=== PATIENT | female | born 1950 | race African-American/Black ===

== ENCOUNTER 2017-03-10 10:13 | Inpatient (IN) ==
[2017-03-10] MEDS ORDERED: TEMAZEPAM 7.5 MG CAPSULE PO PRN (11:18)
[2017-03-10] MEDS ORDERED: LOPERAMIDE 2 MG CAPSULE PO PRN ×2 (11:18)
[2017-03-10] MEDS ORDERED: traMADol 50 MG TABLET PO PRN (11:18)
[2017-03-10] MEDS ORDERED: chlorproMAZINE INJ 50 MG in SODIUM CHLORIDE 0.9% 100 ML IV PRN (11:18)
[2017-03-10] MEDS ORDERED: ACETAMINOPHEN 325 MG TABLET PO PRN (11:18)
[2017-03-10] MEDS ORDERED: ALUMINUM/MAGNES/SIMETH MAX STR 30 ML UDCUP PO PRN (11:18)
[2017-03-10] MEDS ORDERED: chlorproMAZINE 25 MG TABLET PO PRN (11:18)
[2017-03-10] MEDS ORDERED: chlorproMAZINE INJ 25 MG in SODIUM CHLORIDE 0.9% 100 ML IV PRN (11:18)
[2017-03-10] MEDS ORDERED: MYLANTA/LIDO VISC 2:1 300 ML BOTTLE SWISH/SWAL PRN (11:18)
[2017-03-10] MEDS ORDERED: BENZTROPINE 2 MG/2 ML AMP IV PRN (11:18)
[2017-03-10] MEDS ORDERED: PROMETHAZINE INJ 25 MG in SODIUM CHLORIDE 0.9% 50 ML IV PRN (11:18)
[2017-03-10] MEDS ORDERED: ALPRAZolam 0.25 MG TABLET PO PRN (11:18)
[2017-03-10] MEDS ORDERED: MYLANTA/LIDO VISC 2:1 300 ML BOTTLE SWISH/SPIT PRN (11:18)
[2017-03-10] MEDS ORDERED: diphenhydrAMINE CAP 25 MG CAPSULE PO PRN (11:18)
[2017-03-10] MEDS ORDERED: guaiFENesin 200 MG/10 ML UDCUP PO PRN (11:18)
[2017-03-10] MEDS ORDERED: MAGNESIUM HYDROXIDE SUSP 30 ML UDCUP PO PRN (11:18)
[2017-03-10] MEDS ORDERED: LACTULOSE 20 GM/30 ML UDCUP PO PRN (11:18)
--- NOTE | 2017-03-10 12:32 | Ultrasound Report ---
US liver Indication: Elevated bilirubin. Comparison: None. Technique: Using transcutaneous probe, ultrasound imaging of the right upper quadrant was performed. Ultrasound images were captured and stored. Imaged structures include the liver, gallbladder, pancreas, right kidney, aorta, and inferior vena cava. Findings: The liver demonstrates a coarsened pattern of heterogeneous echotexture and contains a round hypoechoic structure transmission measuring 2.1 x 2.0 cm most suggestive of cyst. A second hypoechoic round to oval shaped structure measuring 2.2 x 1.5 cm is present that may reflect an additional cyst, this particular lesion does not demonstrate distinct posterior wall enhancement or through transmission. A larger anechoic round structure with through transmission compatible with cyst measures 5.2 x 5.7 cm. Common bile duct is not identified. Small amount of ascites is noted within the upper abdomen. Pancreas is grossly unremarkable. The right kidney measures 12.8 cm in craniocaudal dimension. The aorta and inferior vena cava not included on study. Color flow is present within the portal veins interrogated. Impression: 1. The liver appears enlarged and demonstrates diffusely heterogeneous pattern of echotexture of multiple hypoechoic to anechoic structures the majority of which have through transmission and/or posterior wall enhancement compatible with cysts. One of these does not have clear-cut posterior wall enhancement but does demonstrate some evidence of through transmission and is favored to represent cyst. 03/10/2017 12:26 PM PROCEDURE INTERPRETED AT [facility] DEPARTMENT OF RADIOLOGY Final Report Signed by: Dr. Harley Luna
--- NOTE | 2017-03-10 12:37 | Ultrasound Report ---
History: Lower extremity swelling. Metastatic colon cancer Date: 03/10/2017 Study: Bilateral lower extremity color-flow venous Doppler study Comparison exam: No previous Color Doppler, wave form analysis, and compression analysis of the deep veins of both lower extremities from the common femoral vein level through the popliteal vein level shows that the veins are readily compressible. There is no abnormal intraluminal material to suggest thrombus. Waveform analysis is unremarkable. Ultrasound images were captured and archived Impression: Normal bilateral lower extremity color flow venous Doppler study. No evidence of acute DVT PROCEDURE INTERPRETED AT [facility] DEPARTMENT OF RADIOLOGY Final Report Signed by: Dr. Sharda Rodrigez
[2017-03-10] MEDS: SODIUM CHLORIDE 0.9% 1,000 ML IV SCH (12:44)
[2017-03-10 14:00] LABS: Magnesium 1.9 MG/DL (1.8-2.4); Uric Acid 12.4 MG/DL (2.6-6.0)
--- NOTE | 2017-03-10 14:25 | CT Report ---
CT chest abdomen pelvis w con Indication: Colon cancer. Comparison: None. Technique: CT of the chest, abdomen, and pelvis was performed following the administration of intravenous contrast. The CT examination was performed using one or more of the following dose reduction techniques: Automatic exposure control, adjustment of the mA and kV according to patient size, or iterative reconstruction techniques. Findings: CHEST: Lungs are clear. No endobronchial lesions or pleural effusions are present. No adenopathy is noted within the axilla, dao, or mediastinum. Heart size is normal. There is enhancing epidural cardiac lymph node within the right upper cardiac window which measures 2.4 x 1.7 cm. The aorta and pulmonary arteries demonstrate no significant abnormalities. Bony structure of the thoracic spine and rib cage as well as sternum demonstrate no specific evidence of osseous metastatic disease. Shoulder girdles are unremarkable in appearance. Soft tissues and musculature of the chest wall as well as lower neck demonstrate no evidence of acute pathology or findings to suggest metastatic disease. ABDOMEN/PELVIS: The liver is enlarged and demonstrates diffusely distributed metastatic disease with too numerous to count metastatic lesions throughout the liver. Small amount ascites is noted anterior to the liver and right hepatic lobe. Additional ascites is noted within the abdomen and pelvis. Liver measures 31 cm in craniocaudal dimension. The largest lesion within the liver measures 20 cm in transverse dimension, 15 cm in craniocaudal dimension, and 12 cm in AP dimension. Mass effect and narrowing/effacement of the left main portal vein is present. Spleen is normal in size. Pancreas demonstrates no significant abnormality. Adrenal glands are not well-visualized. The kidneys demonstrate no significant abnormalities. Aorta is unremarkable. Multiple heterogeneously enhancing lesions are demonstrated within the lower abdomen and pelvis. Some of these are peripherally calcified and range in size from 5.5 cm approximately 3 cm. Peripheral calcification is present while some of these resemble partially calcified uterine fibroids, there is no identifiable structure compatible with uterus in this region. These most likely represent metastatic process. Stomach, duodenum, and small bowel demonstrate no significant abnormalities. Large bowel is decompressed. No lesions of the large bowel are clearly demonstrated. The appendix is not identified. The right gonadal vein is diffusely enlarged and extends into the region of the multiple intrapelvic masses. Its uncertain whether these multiple intrapelvic masses represent ovarian primary or right ovarian/adnexal metastatic disease. Left ovary is grossly normal in size and appearance. Borderline inguinal lymph nodes present on the right. Bony structures lumbar spine and proximal pelvis demonstrates no significant abnormality. Soft tissues and musculature of the body wall demonstrate no significant abnormalities. Impression: 1. No specific evidence of pulmonary metastatic disease. The only evidence of neoplasm above the diaphragm is an enlarged heterogeneously enhancing right epicardiac lymph node. 2. Hepatomegaly and extensive hepatic metastatic disease is demonstrated involving both left and right hepatic lobes. Details are above. 3. Additional intrapelvic metastatic disease is suggested with multiple round heterogeneously enhancing masses that extend into the left lower abdomen and midline abdomen from the pelvis. This appears to be contiguous with the right ovary and/or gonadal vein pedicle suggesting either right ovarian primary or right ovarian metastatic disease extending into the left lower abdomen the left ovary is identified and is grossly normal in size. The uterus is not identified. 4. The large bowel demonstrates no focal mass. 03/10/2017 2:10 PM PROCEDURE INTERPRETED AT [facility] DEPARTMENT OF RADIOLOGY Final Report Signed by: Dr. Harley Luna
[2017-03-11] MEDS: SODIUM CHLORIDE 0.9% 1,000 ML IV SCH (01:59)
[2017-03-11 02:44] LABS: Apearance,Urine Slightly Hazy (Clear); Bacteria,Urine Few /HPF (Few); Blood, Urine Negative (Negative); Glucose,Urine (UA) Negative (Negative); Ketones,Urine Negative (Negative); Nitrite,Urine Negative (Negative); Protein,Urine 30 MG/DL; RBC,Urine 3 /HPF (0-4); Renal Epithelial Cells,Urine Occasional /HPF (<1); Squamous Epithelial Cell,Urine Occasional /HPF (0-10); Urine Color Amber (Yellow); WBC,Urine 8 /HPF (0-6)
[2017-03-11 02:45] LABS: Bilirubin,Urine Small mg/dL (Negative)
[2017-03-11 05:14] LABS: Basophils # 0.1 10*3/uL (0.0-0.2); Basophils % 0.5 % (0.0-0.8); Eosinophils # 0.2 10*3/uL (0.0-0.87); Eosinophils % 1.3 % (0.00-10.9); Hemoglobin 8.2 GM/DL (12.0-16.0); Immature Granulocytes % 0.7 %; Immature Granulocytes Absolute 0.09 #; Lymphocytes # 0.9 10*3/uL (1.4-4.0); Lymphocytes % 6.4 % (21.3-54.2); Mean Corpuscular HGB Conc 35.7 GM/DL (32-36); Mean Corpuscular Hemoglobin 29 PG (27-34); Mean Corpuscular Volume 82.4 FL (87-102); Mean Platelet Volume 11.6 FL (9.6-12.0); Monocytes # 1.5 10*3/uL (0.11-0.8); Monocytes % 11.2 % (1.7-12.7); Neutrophils # 10.6 10*3/uL (1.4-7.4); Neutrophils % 79.9 % (38.7-73.9); Platelet Count 343 T/CUMM (130-400); Red Blood Count 2.79 MC/CUMM (3.8-5.5); Red Cell Distribution Width 15.7 % (9.3-17.3); White Blood Count 13.2 T/CUMM (4-12)
[2017-03-11 05:34] LABS: INR 1.2; PT Patient Result 13.2 SECS; Partial Thromboplastin Time 28.5 SECS (0-40)
[2017-03-11 05:46] LABS: Albumin 2.2 G/DL (3.4-5.0); Bilirubin,Total 9.1 MG/DL (0.2-1.0); Calcium 8.6 MG/DL (8.5-10.1); Osmolality,Calculated 268.2 MOS/KG (273-304); Potassium 3.5 MMOL/L (3.5-5.1); Total Protein 5.4 G/DL (6.4-8.3)
--- NOTE | 2017-03-11 08:26 | Oncology History&Physical ---
Assessment and Plan - Time spent with patient Time spent with patient: Greater than 30 minutes (1) Colon cancer Status: Acute Assessment and plan: We will begin FOLFOX chemotherapy today. I will reduce the doses of her chemotherapy due to her liver failure. She will lose me in the hospital for 3 days for her chemotherapy. She has very poor peripheral access we will have to ask radiology for a PICC today before we began chemotherapy. I will go ahead and ask general surgery to see her to arrange for outpatient Mediport placement sometime in the next 2 weeks. Current Visit: Yes (2) Liver metastases Status: Acute Current Visit: Yes (3) Liver failure Status: Acute Current Visit: Yes (4) Jaundice Status: Acute Current Visit: Yes History of Present Illness History of present illness: Ms. Ingram is a 66 year old female with newly diagnosed metastatic colon cancer with significant liver involvement. Yesterday was her initial visit with me in clinic and she was found to have a bilirubin level of 10 with her level being only 5 last week and [place]. I admit her to the hospital after having a lengthy conversation with her about the gravity of her situation. I offered her hospice care versus immediate initiation of chemotherapy due to her rapid liver failure. She chose to do chemotherapy understanding that this may actually shorten her life as opposed to lengthen it. CT scan done yesterday did not show any evidence of extrahepatic ductal compression. Her liver failure seems to be due to the overwhelming burden of her tumor. She also has diffuse pelvic involvement from metastatic implants. There was no significant thoracic involvement other than a 2-1/2 cm lymph node just above her diaphragm. Her bony structures seem to be spared as well. Outside colonoscopy confirmed a large mass in the sigmoid colon that was biopsied with pathology showing adenocarcinoma. 1 of the liver lesions were biopsied as well and was consistent with adenocarcinoma of colonic primary. She denied a lengthy discussion today about initiation of chemotherapy. She is still in agreement so we will start this today with 5 fluorouracil, leucovorin, and oxaliplatin. Home Medications Medication Instructions Recorded Confirmed Type Furosemide Tab [Lasix Tab] 40 mg PO DAILY 03/10/17 03/10/17 History Metoprolol Tartrate 25 mg PO AC 03/10/17 03/10/17 History Simvastatin [Zocor] 40 mg PO BEDTIME 03/10/17 03/10/17 History Allergies Allergy/AdvReac Type Severity Reaction Status Date / Time No Known Allergies Allergy Verified 03/10/17 11:17 Medical,Surgical,& Family Hx - Medical History Cardio: History of: Hypertension Gastrointestinal: History of: Gastrointestinal Cancer (NEW DX COLON CANCER) - Family History Family History: Reports;: Family Heart Disease, Family Hypertension - Social History Smoking Status: Never smoker Frequency of Alcohol Use: None Type of Drug Use: None 12 point system: reviewed and no additional remarkable complaints except as stated - Constitutional Constitutional: Present: fatigue - Gastrointestinal Gastrointestinal: Present: abdominal pain, nausea, jaundice. Absent: dysphagia Exam - Constitutional Vitals: Period Temp Pulse Resp BP Sys/Flanagan Pulse Ox Last 24 Hr 98.8 F-99.8 F 110-129 18-22 114-129/58-65 92-95 General appearance: normal weight, no acute distress - Head Head Exam: Present: normocephalic, atraumatic - Eye Eye Exam: Present: EOMI, scleral icterus Pupils: Present: PERRL - ENT ENT exam: Present: normal exam, normal oropharynx - Neck Neck exam: Absent: lymphadenopathy, thyromegaly - Respiratory Respiratory exam: Present: CTAB. Absent: wheezes - Cardiovascular Cardiovascular exam: Present: RRR. Absent: JVD, systolic murmur - GI/Abdominal GI/Abdominal exam: Present: soft. Absent: ascites, distended, firm, mass - Neurological Exam Neurological exam: Present: alert, oriented X3 - Psychiatric Psychiatric exam: Present: normal affect, normal mood - Skin Skin exam: Present: warm, dry (Jaundice) Results - Labs CBC & BMP: 03/11/17 04:19 03/11/17 04:19 Lab Results: I have reviewed the past 24 hour labs
[2017-03-11] MEDS ORDERED: GRANISETRON 1 MG/1 ML VIAL IV SCH (08:30)
[2017-03-11] MEDS ORDERED: DEXAMETHASONE INJ 10 MG in SODIUM CHLORIDE 0.9% 50 ML IV ONE (09:00)
[2017-03-11] MEDS ORDERED: DEXTROSE 5% IV ONE ×2 (09:00)
[2017-03-11] MEDS ORDERED: FLUOROURACIL IV ONE (09:00)
[2017-03-11] MEDS ORDERED: LEUCOVORIN IV ONE (09:00)
[2017-03-11] MEDS ORDERED: OXALIPLATIN IV ONE (09:00)
--- NOTE | 2017-03-11 12:01 | General Surgery Consult Note ---
Assessment and Plan (1) Colon cancer Status: Acute Assessment and plan: Patient with metastatic adenocarcinoma of the colon planning to initiate chemotherapy requesting Mediport placement by oncology. Patient receiving PICC today and WBC 13 - no comparison labs. Considering recent liver failure and liver metastases, we will check coag studies. The risks of the procedure were reviewed with the patient including but not limited to infection, bleeding, blood vessel injury, nerve injury, lung injury, local or blood infection, wound complications, local pain, device failure, with a need for additional procedures. The patient expresses understanding of these risks with her at bedside and wishes to proceed with Mediport placement when convenient. Case will be reviewed with Dr. Valencia and timing planned. Current Visit: Yes History of Present Illness Chief complaint: Mediport Placement History of present illness: Ms. Ingram is a 66 year old female with metastatic adenocarcinoma of the colon who is plan to initiate chemotherapy. Oncology has requested Mediport placement for central access. Patient denies any recent fever, chills, rigors, nausea, vomiting, diarrhea or dysuria. No local rashes or open wounds. No history of chest or upper extremity trauma or need for central access. Home Medications Medication Instructions Recorded Confirmed Type Furosemide Tab [Lasix Tab] 40 mg PO DAILY 03/10/17 03/10/17 History Metoprolol Tartrate 25 mg PO AC 03/10/17 03/10/17 History Simvastatin [Zocor] 40 mg PO BEDTIME 03/10/17 03/10/17 History Allergies Allergy/AdvReac Type Severity Reaction Status Date / Time No Known Allergies Allergy Verified 03/10/17 11:17 Medical,Surgical,& Family Hx - Medical History Cardio: History of: Hypertension Gastrointestinal: History of: Gastrointestinal Cancer ( COLON CANCER - metastatic adenocarcinoma) - Family History Family History: Reports;: Family Heart Disease, Family Hypertension - Social History Smoking Status: Never smoker Frequency of Alcohol Use: None Type of Drug Use: None - Constitutional Constitutional: Present: as per HPI - Cardiovascular Cardiovascular: Absent: chest pain at rest, chest pain with activity, orthopnea , palpitations - Respiratory Respiratory: Absent: cough, wheezing - Gastrointestinal Gastrointestinal: Present: as per HPI - Genitourinary Genitourinary: Present: as per HPI - Musculoskeletal Musculoskeletal: Absent: arthralgias Hematologic/Lymphatic: Absent: easy bleeding, easy bruising Exam - Constitutional Vitals: Period Temp Pulse Resp BP Sys/Flanagan Pulse Ox Last 24 Hr 98.4 F-99.8 F 103-116 18-22 114-129/56-65 92-96 General appearance: no acute distress - Head Head exam: Present: normal inspection, normocephalic - Eye Eye exam: Present: scleral icterus. Absent: conjunctival injection - Neck Neck exam: Present: trachea midline - Respiratory Respiratory exam: Present: clear to auscultation bilaterally - Cardiovascular Cardiovascular exam: Present: RRR - GI/Abdominal GI/Abdominal exam: Present: normal bowel sounds, soft. Absent: distended, tenderness - Extremities Exam Extremities exam: Present: other (Radial pulses 2+ bilateral upper extremity). Absent: calf tenderness, edema - Neurological Exam Neurological exam: Present: alert, oriented X3 Speech: Present: normal - Skin Skin exam: Present: warm. Absent: rash Results - Labs CBC & BMP: 03/11/17 04:19 03/11/17 04:19
--- NOTE | 2017-03-11 16:06 | Post Interventional Procedure ---
Pre-op diagnosis: metastatic Colon CA Post-op diagnosis: same Procedure: PICC placement Contrast: none Flouroscopy: 0.1 min Radiologist: Augustus Palma Anesthesia: local Specimens: none sent Estimated blood loss: none Complications: none Condition: stable Description/Findings: 5 FR left arm dual lumen picc placement done without any issues. the catheter is ready to use. Assessment and Plan - Time spent with patient Time spent with patient: Less than 30 minutes
--- NOTE | 2017-03-11 16:33 | Interventional Radiology Rpt ---
IR PICC line insertion, US guide vascular access IR PICC Placement Peripherally-inserted central catheter (PICC) placement using ultrasound and fluoroscopic guidance Ultrasound of the left upper extremity Clinical Information: New diagnosis of metastatic colon cancer with extensive hepatic involvement. PICC line is requested for immediate chemotherapy initiation. Physician: Dr. Palma Procedure: The patient was advised of the benefits, risks, and alternatives of the procedure and informed consent was obtained. A time out was performed with verification of the patient's name, MRN, site of procedure, and type of procedure to be performed. The patient was positioned in the supine position on the angiographic table. The site was prepped and draped in the usual sterile fashion. Additionally, maximal sterile barrier technique was employed for the procedure. A technical adjuster radiograph reveals no relevant abnormality. Ultrasound examination of the left arm demonstrates patent and compressible brachial and basilic veins. The left arm was prepped and draped in the usual sterile fashion. The left basilic vein was again identified. Using ultrasound guidance, a 21 gauge needle was used to access the vein. A permanent ultrasound recording of vascular access was obtained for the patient's record. A 0.018" cope wire was then advanced into the vein. The needle was exchanged for a 5 [place] peel-away sheath. A 5 [place] double lumen Bard Solo PICC catheter was measured and trimmed to the 40 cm isaura. The PICC line was advanced through the sheath and into the central circulation. The catheter tip was positioned at the cavo-atrial junction. The peel-away sheath was then removed. At the conclusion of the procedure, the catheter was secured in place using a Stat-Lock device. A sterile dressing was applied. The lumens aspirate and flush freely. The catheter is ready for immediate use. The patient tolerated the procedure well and was returned to the PRU in stable condition. EBL: < 5 mL. Complications: None. Fluoroscopy time: 0.1 min Total number of images for this study: 2 Conclusion: Successful placement of a 5 [place] double lumen Bard Solo power injectable PICC via the left basilic vein. The catheter is ready for immediate use. PROCEDURE INTERPRETED AT [facility] DEPARTMENT OF RADIOLOGY Final Report Signed by: Augustus Palma
[2017-03-11] MEDS: FLUOROURACIL IV SCH (17:19)
[2017-03-11] MEDS: SODIUM CHLORIDE 0.9% IV SCH (17:19)
[2017-03-12 05:29] LABS: Basophils % 0.3 % (0.0-0.8); Hematocrit 23.7 VOL% (35.7-47.0); Hemoglobin 8.4 GM/DL (12.0-16.0); Immature Granulocytes % 0.9 %; Lymphocytes # 0.6 10*3/uL (1.4-4.0); Mean Corpuscular HGB Conc 35.4 GM/DL (32-36); Mean Corpuscular Hemoglobin 29 PG (27-34); Mean Corpuscular Volume 82.6 FL (87-102); Mean Platelet Volume 11.9 FL (9.6-12.0); Monocytes # 1.2 10*3/uL (0.11-0.8); Monocytes % 10.4 % (1.7-12.7); Neutrophils # 9.5 10*3/uL (1.4-7.4); Neutrophils % 83.4 % (38.7-73.9); Platelet Count 392 T/CUMM (130-400); Red Blood Count 2.87 MC/CUMM (3.8-5.5); Red Cell Distribution Width 16.2 % (9.3-17.3); White Blood Count 11.4 T/CUMM (4-12)
[2017-03-12 06:03] LABS: Albumin 2.1 G/DL (3.4-5.0); Calcium 8.8 MG/DL (8.5-10.1); Magnesium 1.9 MG/DL (1.8-2.4); Osmolality,Calculated 272.1 MOS/KG (273-304); Potassium 3.8 MMOL/L (3.5-5.1); Total Protein 5.5 G/DL (6.4-8.3)
[2017-03-12 06:14] LABS: INR 1.3; PT Patient Result 13.5 SECS; Partial Thromboplastin Time 28.6 SECS (0-40)
--- NOTE | 2017-03-12 08:39 | Oncology Progress Note ---
Assessment and Plan (1) Liver metastases Status: Acute Current Visit: Yes (2) Liver failure Status: Acute Current Visit: Yes (3) Jaundice Status: Acute Current Visit: Yes (4) Colon cancer Status: Acute Current Visit: Yes Oncology Subjective PN Interval history: Ms. Ingram is tolerating chemotherapy well. She will complete her 5 fluorouracil infusion tomorrow evening. I will likely watch her overnight and discharge her on Wednesday. Her lab work this morning is essentially stable. Her bilirubin remains around 9. Her appetite is good. I will DC IV fluids today. I encouraged her to ambulate in the hallway 2-3 times a day. Also encouraged her that she should sit in the chair instead of the bed while she is in the room. Her prognosis remains poor but hopefully we can buy her a few extra months if we can have her tumor response to chemotherapy. Exam - Constitutional Vitals: Period Temp Pulse Resp BP Sys/Flanagan Pulse Ox Last 24 Hr 97.3 F-99.3 F 102-112 18-20 114-129/65-73 92-96 General appearance: normal weight, no acute distress - Head Head Exam: Present: normocephalic, atraumatic - Eye Eye Exam: Present: scleral icterus - ENT ENT exam: Present: normal exam, normal oropharynx - Neck Neck exam: Absent: lymphadenopathy, thyromegaly - Respiratory Respiratory exam: Present: CTAB. Absent: wheezes - Cardiovascular Cardiovascular exam: Present: RRR. Absent: JVD - GI/Abdominal GI/Abdominal exam: Present: soft. Absent: ascites, distended, firm, mass - Neurological Exam Neurological exam: Present: alert, oriented X3 - Psychiatric Psychiatric exam: Present: normal affect, normal mood - Skin Skin exam: Present: warm, dry Results - Labs CBC & BMP: 03/12/17 04:14 03/12/17 04:14 Lab Results: I have reviewed the past 24 hour labs Quality Measures - VTE Contraindication to Pharmacological VTE Prophylaxis: High Risk of Bleeding Specialty Discharge - Follow Up or Referrals Follow up with: Dimitri Valencia MD [Physician] - 1 Week
[2017-03-12] MEDS: FLUOROURACIL IV SCH (15:50)
[2017-03-12] MEDS: SODIUM CHLORIDE 0.9% IV SCH (15:50)
[2017-03-12] MEDS: ONDANSETRON 4 MG/2 ML VIAL IV PRN (16:59)
[2017-03-13 05:39] LABS: Basophils # 0.1 10*3/uL (0.0-0.2); Basophils % 0.4 % (0.0-0.8); Eosinophils # 0.2 10*3/uL (0.0-0.87); Eosinophils % 1.2 % (0.00-10.9); Hematocrit 24.3 VOL% (35.7-47.0); Hemoglobin 8.6 GM/DL (12.0-16.0); Immature Granulocytes % 0.4 %; Immature Granulocytes Absolute 0.06 #; Lymphocytes # 0.9 10*3/uL (1.4-4.0); Lymphocytes % 6.8 % (21.3-54.2); Mean Corpuscular HGB Conc 35.4 GM/DL (32-36); Mean Corpuscular Hemoglobin 29 PG (27-34); Mean Corpuscular Volume 82.7 FL (87-102); Mean Platelet Volume 11.3 FL (9.6-12.0); Monocytes # 0.4 10*3/uL (0.11-0.8); Monocytes % 2.9 % (1.7-12.7); Neutrophils # 12.1 10*3/uL (1.4-7.4); Neutrophils % 88.3 % (38.7-73.9); Platelet Count 422 T/CUMM (130-400); Red Blood Count 2.94 MC/CUMM (3.8-5.5); Red Cell Distribution Width 16.3 % (9.3-17.3); White Blood Count 13.7 T/CUMM (4-12)
[2017-03-13 06:23] LABS: Albumin 2.2 G/DL (3.4-5.0); Bilirubin,Total 9.1 MG/DL (0.2-1.0); Calcium 9.1 MG/DL (8.5-10.1); Magnesium 1.8 MG/DL (1.8-2.4); Osmolality,Calculated 273.1 MOS/KG (273-304); Potassium 3.7 MMOL/L (3.5-5.1); Total Protein 5.5 G/DL (6.4-8.3)
[2017-03-13] MEDS: ONDANSETRON 4 MG/2 ML VIAL IV PRN (07:53)
--- NOTE | 2017-03-13 10:31 | Oncology Progress Note ---
Assessment and Plan (1) Liver metastases Status: Acute Current Visit: Yes (2) Liver failure Status: Acute Current Visit: Yes (3) Jaundice Status: Acute Current Visit: Yes (4) Colon cancer Status: Acute Current Visit: Yes Oncology Subjective PN Interval history: Ms. Ingram is doing well today. She completes chemotherapy later today but we will watch her overnight for observation purposes. I will plan to discharge her home in the morning unless we have some type of complications today. She is ambulating well. She is taking in p.o. intake but her appetite is low. She still has significant scleral icterus and a distended abdomen. Her lab work is essentially stable today. Exam - Constitutional Vitals: Period Temp Pulse Resp BP Sys/Flanagan Pulse Ox Last 24 Hr 97.2 F-99.4 F 107-122 16-22 110-129/56-71 92-97 General appearance: normal weight, no acute distress - Head Head Exam: Present: normocephalic, atraumatic - Eye Eye Exam: Present: EOMI, scleral icterus Pupils: Present: PERRL - ENT ENT exam: Present: normal exam, normal oropharynx - Neck Neck exam: Absent: lymphadenopathy, thyromegaly - Respiratory Respiratory exam: Present: CTAB. Absent: wheezes - GI/Abdominal GI/Abdominal exam: Present: ascites, distended, firm. Absent: mass, soft Results - Labs CBC & BMP: 03/13/17 04:42 03/13/17 04:42 Lab Results: I have reviewed the past 24 hour labs Quality Measures - VTE Contraindication to Pharmacological VTE Prophylaxis: High Risk of Bleeding Specialty Discharge - Follow Up or Referrals Follow up with: Dimitri Valencia MD [Physician] - 03/22/17 10:15 am
[2017-03-13] MEDS ORDERED: METOPROLOL TARTRATE 25 MG TABLET PO SCH (21:00)
[2017-03-14 06:14] LABS: Basophils % 0.2 % (0.0-0.8); Eosinophils # 0.1 10*3/uL (0.0-0.87); Eosinophils % 0.8 % (0.00-10.9); Hematocrit 24.5 VOL% (35.7-47.0); Hemoglobin 8.5 GM/DL (12.0-16.0); Immature Granulocytes % 0.8 %; Lymphocytes # 0.7 10*3/uL (1.4-4.0); Lymphocytes % 5.9 % (21.3-54.2); Mean Corpuscular HGB Conc 34.7 GM/DL (32-36); Mean Corpuscular Hemoglobin 28 PG (27-34); Mean Corpuscular Volume 81.7 FL (87-102); Mean Platelet Volume 11.5 FL (9.6-12.0); Monocytes # 0.1 10*3/uL (0.11-0.8); Monocytes % 0.7 % (1.7-12.7); Neutrophils # 10.9 10*3/uL (1.4-7.4); Neutrophils % 91.6 % (38.7-73.9); Platelet Count 423 T/CUMM (130-400); Red Cell Distribution Width 16.5 % (9.3-17.3); White Blood Count 11.9 T/CUMM (4-12)
[2017-03-14 06:41] LABS: Eosinophils 2 % (0-10); Hypochromasia 1+; Lymphocytes 8 % (20-55); Ovalocytes Slight; Platelet Estimate Adequate; Segmented Neutrophils 88 % (50-85); Total Cells Counted 100
[2017-03-14 06:46] LABS: Bilirubin,Total 8.8 MG/DL (0.2-1.0); Calcium 8.9 MG/DL (8.5-10.1); Magnesium 2.1 MG/DL (1.8-2.4); Osmolality,Calculated 275.8 MOS/KG (273-304); Potassium 3.7 MMOL/L (3.5-5.1); Total Protein 5.2 G/DL (6.4-8.3)
[2017-03-14] MEDS: ONDANSETRON 4 MG/2 ML VIAL IV PRN (07:53)
--- NOTE | 2017-03-14 08:59 | Discharge Summary ---
Hospital Course - Hospital Course Hospital Course: Ms. Ingram is a 66-year-old black female with newly diagnosed metastatic colon cancer with extensive liver metastases. She has liver failure secondary to the amount of disease in her liver. I admitted her from clinic on the day of our initial visit to start chemotherapy as soon as possible. She tolerated her first dose of FOLFOX well. I reduced her doses of chemotherapy by 50%. She finished chemotherapy yesterday and has done well. My plan is to send her home today and see her back in clinic in 2 weeks on March 24 for her next round of chemotherapy. 1. Please make appt to see me on March 24 in a.m. with CBC/CMP/CEA 2. Pt needs to keep appt with Dr. Valencia for medi-port placement - Time spent with patient Time with patient DS: Greater than 30 minutes Diagnosis - Discharge Diagnosis (1) Liver metastases Status: Acute (2) Liver failure Status: Acute (3) Jaundice Status: Acute (4) Colon cancer Status: Acute Specialty Discharge - Follow Up or Referrals Follow up with: Dimitri Valencia MD [Physician] - 03/22/17 10:15 am Discharge Plan - Discharge Data Disposition: Disch To Home/Self Care Condition at Discharge: Stable Discharge Diet: advance to your usual diet Activity: resume usual activities as tolerated Hygiene: no restrictions Weight Bearing at Discharge: full weight bearing Contact your physician if you experience:: fever over 101, Nausea/Vomiting - Discharge Medications New Ondansetron HCl 8 mg PO Q6HR #30 tablet Continue Furosemide Tab [Lasix Tab] 40 mg PO DAILY Metoprolol Tartrate 25 mg PO BEDTIME Discontinued Simvastatin [Zocor] 40 mg PO BEDTIME - Follow Up or Referral Follow Up: Dimitri Valencia MD [Physician] - 03/22/17 10:15 am - Forms/Instructions Exam - Constitutional Vitals: Period Temp Pulse Resp BP Sys/Flanagan Pulse Ox Last 24 Hr 98.6 F-100.6 F 108-114 16-20 116-129/62-70 92-97 Discharge Results Procedures and tests throughout hospitalization: Pending Orders 03/15/17 04:00 Comp Blood Count Auto Diff IN AM Comprehensive Metabolic Panel IN AM Magnesium IN AM Labs on day of discharge: Labs from last 24 hours 03/14/17 03/14/17 04:00 04:00 WBC 11.9 RBC 3.00 L Hgb 8.5 L Hct 24.5 L MCV 81.7 L MCH 28 MCHC 34.7 RDW 16.5 Plt Count 423 H MPV 11.5 Neut % (Auto) 91.6 H Lymph % (Auto) 5.9 L [place] % (Auto) 0.7 L Eos % (Auto) 0.8 Baso % (Auto) 0.2 Neut # (Auto) 10.9 H Lymph # (Auto) 0.7 L [place] # (Auto) 0.1 L Eos # (Auto) 0.1 Baso # (Auto) 0.0 Total Counted 100 Immature Gran % 0.8 Nucleated RBC % 0.0 Immature Gran # 0.10 Segmented Neutrophils 88 H Lymphocytes 8 L Monocytes 1 L Eosinophils 2 Basophils 1.0 H Nucleated RBCs # 0.00 Platelet Estimate Adequate Hypochromasia 1+ Ovalocytes Slight Morphology Comment Sodium 137 Potassium 3.7 Chloride 98 Carbon Dioxide 28 Anion Gap 14.7 BUN 20 H Creatinine 0.80 GFR Calculation 99 BUN/Creatinine Ratio 25.00 H Glucose 100 Calculated Osmolality 275.8 Calcium 8.9 Magnesium 2.1 Total Bilirubin 8.80 H AST 374 H ALT 63 H Alkaline Phosphatase 394 H Total Protein 5.2 L Albumin 2.0 L Globulin 3.2 Albumin/Globulin Ratio 0.6 L DS: Provider Date of admission: 03/10/17 10:43 Primary care physician: . No PCP Attending physician on admission: Aston Mojica MD Consults: 03/10/17 12:07 Consult to Dietitian [CONS] Routine Reason for Dietitian: Diet Recommendations 03/11/17 08:19 Consult to Physician [CONS] Routine Comment: Please evaluate for mediport placement Consulting Provider: Dimitri Valencia Consulting Provider Notified: Yes When should Consulting Provider be notified: Now Consult to Specialist Group: Surgery When should Consulting Provider be notified: Now Person Notified: HELADIO Date Notified: 03/11/17 Time Notified: 10:13 Discharging clinician: Aston Mojica MD
[2017-03-14 09:20] VITALS: BP 117/57
== END 2017-03-14 10:00 | disposition home or self-care (01) | DRG 847 ==
LOC: N.4E 10:43
PROVIDERS: ADMIT Specialist; ATTEND Specialist

== ENCOUNTER 2017-06-02 17:12 | Inpatient (IN) ==
[2017-06-02] MEDS ORDERED: ALUMINUM/MAGNES/SIMETH MAX STR 30 ML UDCUP PO PRN (17:24)
[2017-06-02] MEDS ORDERED: ACETAMINOPHEN 325 MG TABLET PO PRN (17:24)
[2017-06-02] MEDS ORDERED: LACTULOSE 20 GM/30 ML UDCUP PO PRN (17:24)
[2017-06-02] MEDS ORDERED: chlorproMAZINE INJ 50 MG in SODIUM CHLORIDE 0.9% 100 ML IV PRN (17:24)
[2017-06-02] MEDS ORDERED: LOPERAMIDE 2 MG CAPSULE PO PRN ×2 (17:24)
[2017-06-02] MEDS ORDERED: PROMETHAZINE INJ 25 MG in SODIUM CHLORIDE 0.9% 50 ML IV PRN (17:24)
[2017-06-02] MEDS ORDERED: chlorproMAZINE INJ 25 MG in SODIUM CHLORIDE 0.9% 100 ML IV PRN (17:24)
[2017-06-02] MEDS ORDERED: ALPRAZolam 0.25 MG TABLET PO PRN (17:24)
[2017-06-02] MEDS ORDERED: diphenhydrAMINE CAP 25 MG CAPSULE PO PRN (17:24)
[2017-06-02] MEDS ORDERED: MYLANTA/LIDO VISC 2:1 300 ML BOTTLE SWISH/SPIT PRN (17:24)
[2017-06-02] MEDS ORDERED: guaiFENesin 200 MG/10 ML UDCUP PO PRN (17:24)
[2017-06-02] MEDS ORDERED: chlorproMAZINE 25 MG TABLET PO PRN (17:24)
[2017-06-02] MEDS ORDERED: TEMAZEPAM 7.5 MG CAPSULE PO PRN (17:24)
[2017-06-02] MEDS ORDERED: MYLANTA/LIDO VISC 2:1 300 ML BOTTLE SWISH/SWAL PRN (17:24)
[2017-06-02] MEDS ORDERED: BENZTROPINE 2 MG/2 ML AMP IV PRN (17:24)
[2017-06-02] MEDS ORDERED: ONDANSETRON 4 MG/2 ML VIAL IV PRN (17:24)
[2017-06-02] MEDS ORDERED: MAGNESIUM HYDROXIDE SUSP 30 ML UDCUP PO PRN (17:24)
[2017-06-02] MEDS ORDERED: traMADol 50 MG TABLET PO PRN (17:24)
[2017-06-03] MEDS: SODIUM CHLORIDE 0.9% 1,000 ML IV SCH ×2 (00:09→07:51)
[2017-06-03 05:34] LABS: Basophils % 0.1 % (0.0-0.8); Hematocrit 21.9 VOL% (35.7-47.0); Hemoglobin 8.2 GM/DL (12.0-16.0); Immature Granulocytes % 1.3 %; Immature Granulocytes Absolute 0.22 #; Lymphocytes # 0.7 10*3/uL (1.4-4.0); Lymphocytes % 3.8 % (21.3-54.2); Mean Corpuscular HGB Conc 37.4 GM/DL (32-36); Mean Corpuscular Hemoglobin 33 PG (27-34); Monocytes # 1.3 10*3/uL (0.11-0.8); Monocytes % 7.4 % (1.7-12.7); NRBC # 0.18 10*3/uL; Neutrophils # 14.9 10*3/uL (1.4-7.4); Neutrophils % 87.4 % (38.7-73.9); Platelet Count 170 T/CUMM (130-400); Red Blood Count 2.49 MC/CUMM (3.8-5.5); Red Cell Distribution Width 24.6 % (9.3-17.3); White Blood Count 17.1 T/CUMM (4-12)
[2017-06-03 06:07] LABS: Hypochromasia 1+; Lymphocytes 2 % (20-55); Nucleated Red Blood Cells 1 (0-5); Segmented Neutrophils 94 % (50-85); Total Cells Counted 100
[2017-06-03 06:08] LABS: Microcytosis 1+; Target Cells 1+
[2017-06-03 06:10] LABS: Albumin 1.6 G/DL (3.4-5.0); Osmolality,Calculated 293.5 MOS/KG (273-304); Potassium 3.8 MMOL/L (3.5-5.1); Total Protein 4.5 G/DL (6.4-8.3)
[2017-06-03 06:22] LABS: Bilirubin,Total 27.3 MG/DL (0.2-1.0)
[2017-06-03] MEDS ORDERED: SODIUM CHLORIDE 0.9% 1,000 ML IV SCH (08:00)
--- NOTE | 2017-06-03 08:11 | Oncology History&Physical ---
Assessment and Plan - Time spent with patient Time spent with patient: Greater than 30 minutes (1) Colon cancer Status: Acute Assessment and plan: We will discontinue her chemotherapy. We will continue gentle hydration today. We will ask case management to begin working on home hospice arrangements with plans for discharge home tomorrow. Current Visit: No (2) Syncope Status: Acute Current Visit: Yes (3) Anemia due to chemotherapy Status: Acute Current Visit: Yes (4) Dehydration Status: Acute Current Visit: Yes (5) Malnutrition Status: Acute Current Visit: Yes (6) Liver metastases Status: Acute Current Visit: No (7) Liver failure Status: Acute Current Visit: No (8) Jaundice Status: Acute Current Visit: No History of Present Illness History of present illness: Ms. Ingram is a 66 year old female with metastatic colon cancer currently on palliative chemotherapy. She and I had a lengthy discussion in clinic yesterday about discontinuing treatment and going on home hospice but she was adamant that she would like to remain on chemotherapy. I reluctantly continued on with treatment even though I do not feel like her survival is being benefited any from chemotherapy and it axis probably shortening her life span. When she received chemotherapy in clinic and arrived at home, she subsequently had a syncopal episode and was taken to the local emergency room. There she was awake and alert but was mildly hypotensive. Her and her requested to be transferred [facility] for evaluation. I had a lengthy discussion with her this morning about her continued decline in functional status and how we will no longer do chemotherapy. I will slowly hydrate her here in the hospital for another 24 hours. This will most likely worsen her lower extremity edema but this is unavoidable. Her bilirubin level remains almost 30 and has been such for the past 3 months. Her prognosis is very poor and we will discharge her home on home hospice tomorrow. Home Medications Medication Instructions Recorded Confirmed Type RX: Furosemide Tab [Lasix Tab] 40 mg PO DAILY 03/10/17 06/02/17 History RX: Metoprolol Tartrate 25 mg PO BEDTIME 03/10/17 06/02/17 History RX: Ondansetron HCl 8 mg PO Q6HR PRN 03/22/17 06/02/17 History RX: Spironolactone 25 mg PO DAILY 06/02/17 06/02/17 History Allergies Allergy/AdvReac Type Severity Reaction Status Date / Time No Known Allergies Allergy Verified 03/23/17 11:13 Medical,Surgical,& Family Hx - Medical History Cardio: History of: Hypertension Neurology: No history of: Seizures HEENT: History of: Eye Problem (GLASSES, PT WEARS FOR READING.) Endocrine: History of: Dyslipidemia (PAST HX) Respiratory: No history of: Respiratory Problems (FLU VAC-NO; PNEU VAC- NO.) Gastrointestinal: History of: GERD, Liver Problems (liver mets), Gastrointestinal Cancer ( COLON CANCER - metastatic adenocarcinoma) Other: History of: Cancer (COLON CANCER) - Family History Family History: Reports;: Family Heart Disease, Family Hypertension - Social History Smoking Status: Never smoker Frequency of Alcohol Use: None Type of Drug Use: None 12 point system: reviewed and no additional remarkable complaints except as stated - Constitutional Constitutional: Present: fatigue, malaise. Absent: chills, fever(s), weakness - EENT Eye: Absent: blurry vision, loss of vision Nose, mouth and throat: Present: dizziness. Absent: dysphagia, epistaxis - Cardiovascular Cardiovascular ROS IM: Present: edema. Absent: chest pain Exam - Constitutional Vitals: Period Temp Pulse Resp BP Sys/Flanagan Pulse Ox Last 24 Hr 97.9 F 18-22 76/43 96 General appearance: mild distress, cachectic - Head Head Exam: Present: normocephalic, atraumatic - Eye Eye Exam: Present: EOMI, scleral icterus Pupils: Present: PERRL - ENT ENT exam: Present: normal exam, normal oropharynx - Neck Neck exam: Absent: lymphadenopathy, thyromegaly - Respiratory Respiratory exam: Present: CTAB. Absent: wheezes - Cardiovascular Cardiovascular exam: Present: RRR. Absent: JVD, systolic murmur - GI/Abdominal GI/Abdominal exam: Present: ascites, distended, soft. Absent: firm, mass - Neurological Exam Neurological exam: Present: alert, oriented X3 - Psychiatric Psychiatric exam: Present: normal affect, normal mood - Skin Skin exam: Present: warm, dry Results - Labs CBC & BMP: 06/03/17 04:53 06/03/17 04:53 Lab Results: I have reviewed the past 24 hour labs
[2017-06-04 07:53] VITALS: BP 86/51
--- NOTE | 2017-06-04 08:46 | Discharge Summary ---
Hospital Course - Hospital Course Hospital Course: Ms. Byrd is a 66-year-old black female with metastatic colon cancer and liver failure who we attempted to do palliative chemotherapy on but she has continued to decline over the last 2-3 months. This week she was in clinic for another dose of chemotherapy and I strongly encouraged her to not do any further treatment of the only thought it was hastening her demise. She was adamant that she wanted to remain on chemotherapy and I reluctantly agreed to do so. The day she received the chemotherapy she went home and had a syncopal episode. She returned to the hospital for overnight evaluation. I had a lengthy talk with her the next morning and was adamant that we will no longer do chemotherapy. She agreed to this and is agreeable to going home on home hospice. I do not anticipate that she will survive more than a few weeks. I will write her a prescription for concentrated morphine. I told her to stop taking all of her home medications including her fluid medicines as these do not seem to do much for her lower extremity edema. They only seem to be dehydrating her further. She is going to hold her metoprolol as well. Anticipate that she will likely become basically bedbound very rapidly over the next few days and will probably stop eating as well. The very sad situation but unfortunately there is nothing we can do to turn her cancer around at this point. She has severe icterus from an elevated bilirubin. Her liver will likely continue to fail which will actually help with palliation of pain. She does not need to follow-up with me in clinic. She is going home and [facility] will follow her from here forward. Diagnosis - Discharge Diagnosis (1) Colon cancer Status: Acute (2) Syncope Status: Acute (3) Anemia due to chemotherapy Status: Acute (4) Dehydration Status: Acute (5) Malnutrition Status: Acute (6) Liver metastases Status: Acute (7) Liver failure Status: Acute (8) Jaundice Status: Acute Discharge Plan - Discharge Data Disposition: Hospice - Home Condition at Discharge: Guarded Discharge Diet: advance to your usual diet - Discharge Medications New Morphine Sulfate [Roxanol] 0.25 - 0.5 ml PO Q4H PRN #30 ml PRN Reason: Pain Continue Ondansetron HCl 8 mg PO Q6HR PRN PRN Reason: Nausea No Action Furosemide Tab [Lasix Tab] 40 mg PO DAILY Metoprolol Tartrate 25 mg PO BEDTIME Spironolactone 25 mg PO DAILY - Follow Up or Referral - Forms/Instructions Exam - Constitutional Vitals: Period Temp Pulse Resp BP Sys/Flanagan Pulse Ox Last 24 Hr 7.6 F-98.0 F 97-101 18-22 75-97/36-55 89-100 DS: Provider Date of admission: 06/02/17 23:27 Primary care physician: Michelle Walsh Attending physician on admission: Aston Mojica MD Consults: 06/03/17 08:13 Consult to Case Mgmt/Social Srvs [CONS] Routine Reason for Case Mgmt/Social Srvs: Hospice Referral Discharging clinician: Aston Mojica MD
== END 2017-06-04 11:08 | disposition hospice, home (50) | DRG 640 ==
LOC: N.4E 23:27
PROVIDERS: ADMIT Specialist; ATTEND Specialist